=== PATIENT | male | born 1965 | race Caucasian/White ===

== ENCOUNTER 2019-07-30 18:25 | Inpatient (IN) ==
[2019-07-30] MEDS ORDERED: Acetaminophen 325 MG TABLET PO PRN (20:26)
[2019-07-30] MEDS ORDERED: Naloxone 0.4 MG/ML INJ IVP PRN (20:26)
[2019-07-30] MEDS ORDERED: Furosemide 80 MG in 0.9 % Sodium Chloride 50 ML IVPB ONE ×2 (21:09→21:27)
[2019-07-30] MEDS ORDERED: Furosemide 40 MG/4 ML VIAL IVP ONE (21:32)
[2019-07-30] MEDS: Azithromycin 500 MG in 0.9 % Sodium Chloride 250 ML IVPB SCH (21:46)
[2019-07-30 22:19] LABS: % Iron Saturation 14 % (20-55); Iron 25 mcg/dL (65-175); Transferrin 130 mg/dL (203-362)
[2019-07-30 22:38] LABS: Ferritin 1090 ng/mL (20-250)
[2019-07-30] MEDS: Ipratropium/Albuterol Neb 3 ML IH SCH (22:41)
[2019-07-31] MEDS: MethylPREDNISolone 40 MG/ML VIAL IVP SCH ×4 (00:12→19:55)
[2019-07-31] MEDS ORDERED: Nitroglycerin 1 INCH/GM PACKET TP ONE (00:44)
[2019-07-31 00:57] LABS: Hematocrit 25.2 % (37.5-50.1); Mean Corpuscular HGB Conc 31.7 g/dL (31.6-35.5); Mean Corpuscular Hemoglobin 29.7 pg (28.0-33.3); Mean Corpuscular Volume 93.7 fL (83.0-100.0); Mean Platelet Volume 8.6 fL (9.4-12.4); Platelet Count 196 K/mcL (140-400); Red Blood Count 2.69 M/mcL (4.19-5.50); Red Cell Distribution Width 16.2 % (11.5-14.5); White Blood Count 11.8 K/mcL (4.3-11.1)
[2019-07-31 01:17] LABS: Calcium 9.8 mg/dL (8.6-10.3); Magnesium 2.1 mg/dL (1.6-2.6); Phosphorous 2.2 mg/dL (2.7-4.5); Potassium 3.6 mEq/L (3.5-5.1)
[2019-07-31 01:23] LABS: Adenovirus Not Detected (Not Detect); Coronavirus 229E Not Detected (Not Detect); Coronavirus HKU1 Not Detected (Not Detect); Coronavirus NL63 Not Detected (Not Detect); Coronavirus OC43 Not Detected (Not Detect); Human Metapneumovirus Not Detected (Not Detect); Human Rhinovirus/Enterovirus Not Detected (Not Detect)
[2019-07-31 01:24] LABS: Bordetella Pertussis Not Detected (Not Detect); Chlamydophila pneumoniae Not Detected (Not Detect); Influenza A Subtype 2009 H1 Not Detected (Not Detect); Influenza B Not Detected (Not Detect); Mycoplasma pneumoniae Not Detected (Not Detect); Parainfluenza Virus 1 Not Detected (Not Detect); Parainfluenza Virus 2 Not Detected (Not Detect); Parainfluenza Virus 3 Not Detected (Not Detect); Parainfluenza Virus 4 Not Detected (Not Detect); Respiratory Syncytial Virus Not Detected (Not Detect)
[2019-07-31] MEDS: Ipratropium/Albuterol Neb 3 ML IH SCH ×4 (03:50→22:06)
[2019-07-31 09:58] LABS: Bilirubin,Urine Negative (Negative); Blood,Urine Negative (Negative); Clarity,Urine Clear (Clear); Color,Urine Yellow (Yellow); Glucose,Urine (UA) Normal (Normal); Ketones,Urine Trace mg/dL (Negative); Leukocyte Esterase,Urine Negative (Negative); Nitrite,Urine Negative (Negative); PH,Urine 7.5 pH Units (5.0-8.0); Protein,Urine 100 mg/dL (Neg-Trace); Specific Gravity,Urine 1.015 (1.010-1.025); Urobilinogen,Urine Normal (Normal)
[2019-07-31 10:02] LABS: Bacteria,Urine Moderate per hpf (None-Few); Hyaline Casts,Urine None Seen per lpf (None-Few); Squamous Epithelial Cell,Urine Many per lpf (None-Few)
[2019-07-31] MEDS ORDERED: clonazePAM 0.5 MG TABLET PO PRN (13:23)
[2019-07-31] MEDS: *HR* HYDROcodone/Acet 5/325 mg TABLET PO PRN (14:12)
[2019-07-31] MEDS: Famotidine 20 MG TABLET PO SCH (14:12)
[2019-07-31] MEDS: cloNIDine HCl 0.1 MG TABLET PO SCH ×2 (14:12→19:54)
[2019-07-31] MEDS: hydrALAZINE 25 MG TABLET PO SCH ×2 (14:12→19:54)
[2019-07-31] MEDS: *HR* Heparin 5,000 UNIT/ML VIAL SQ SCH ×2 (14:13→19:55)
[2019-07-31] MEDS: carvediloL 25 MG TABLET PO SCH (16:26)
[2019-07-31] MEDS: Azithromycin 500 MG in 0.9 % Sodium Chloride 250 ML IVPB SCH (23:47)
[2019-07-31] MEDS: *HR* Labetalol 20 MG/4 ML SYRINGE IVP PRN (23:49)
[2019-08-01 01:05] LABS: Hematocrit 23.2 % (37.5-50.1); Hemoglobin 7.4 g/dL (12.9-16.9); Mean Corpuscular HGB Conc 31.9 g/dL (31.6-35.5); Mean Corpuscular Volume 93.9 fL (83.0-100.0); Mean Platelet Volume 8.8 fL (9.4-12.4); Platelet Count 193 K/mcL (140-400); Red Blood Count 2.47 M/mcL (4.19-5.50)
[2019-08-01 01:21] LABS: Calcium 9.7 mg/dL (8.6-10.3); Potassium 4.1 mEq/L (3.5-5.1)
[2019-08-01 01:26] LABS: Albumin 3.6 g/dL (3.5-5.7); Phosphorous 2.6 mg/dL (2.7-4.5)
[2019-08-01] MEDS: Ipratropium/Albuterol Neb 3 ML IH SCH (03:46)
[2019-08-01] MEDS: *HR* Labetalol 20 MG/4 ML SYRINGE IVP PRN (06:22)
[2019-08-01] MEDS: *HR* Heparin 5,000 UNIT/ML VIAL SQ SCH (06:23)
[2019-08-01 07:36] VITALS: BP 169/91
[2019-08-01] MEDS: carvediloL 25 MG TABLET PO SCH (07:48)
[2019-08-01] MEDS: cloNIDine HCl 0.1 MG TABLET PO SCH (07:48)
[2019-08-01] MEDS: hydrALAZINE 25 MG TABLET PO SCH (07:48)
[2019-08-01] MEDS: Famotidine 20 MG TABLET PO SCH (07:48)
[2019-08-01] MEDS: MethylPREDNISolone 40 MG/ML VIAL IVP SCH (07:49)
[2019-08-01] MEDS ORDERED: Nicotine 14 MG PATCH.TD24 TD SCH (09:00)
[2019-08-01] MEDS ORDERED: NIFEdipine XL (24 HR) 30 MG TAB.ER.24 PO SCH (09:00)
[2019-08-01] MEDS: *HR* HYDROcodone/Acet 5/325 mg TABLET PO PRN (10:23)
== END 2019-08-01 10:46 | DRG 291 ==
LOC: 2ANU → 2NNU 23:26 → SUATTDRO 23:43
PROVIDERS: ADMIT Pharmacist; ATTEND Family Medicine

== ENCOUNTER 2019-08-20 04:47 | Observation (INO) ==
[2019-08-20] MEDS ORDERED: Naloxone 0.4 MG/ML INJ IVP PRN (08:52)
[2019-08-20] MEDS ORDERED: Ondansetron ODT 4 MG TAB.RAPDIS SL PRN (08:52)
[2019-08-20] MEDS ORDERED: Ipratropium/Albuterol Neb 3 ML IH PRN (08:55)
[2019-08-20] MEDS ORDERED: 0.9 % Sodium Chloride 250 ML IVC PRN (08:59)
[2019-08-20] MEDS ORDERED: 0.9 % Sodium Chloride 1,000 ML PRIME SCH ×2 (09:00→11:30)
[2019-08-20] MEDS ORDERED: 0.9 % Sodium Chloride 2,000 ML ONE (09:53)
[2019-08-20] MEDS ORDERED: Ipratropium/Albuterol Neb 3 ML IH SCH (10:00)
[2019-08-20 11:05] LABS: Hepatitis B Surface Antibody < 3.10 mIU/mL
[2019-08-20 11:16] LABS: Hepatitis B Surface Antigen Nonreactive (Nonreactive)
[2019-08-20] MEDS ORDERED: *HR* Heparin 10,000 UNIT/10 ML VIAL IV PRN (11:26)
[2019-08-20] MEDS ORDERED: cloNIDine HCL 0.1 MG TABLET PO ONE (12:05)
[2019-08-20] MEDS: Budesonide/Formoterol 160/4.5 1 PUFF INH IH SCH ×2 (14:10→20:03)
[2019-08-20 14:26] LABS: Adenovirus Not Detected (Not Detect); Bordetella Pertussis Not Detected (Not Detect); Coronavirus 229E Not Detected (Not Detect); Coronavirus HKU1 Not Detected (Not Detect); Coronavirus NL63 Not Detected (Not Detect); Coronavirus OC43 Not Detected (Not Detect); Human Metapneumovirus Not Detected (Not Detect); Human Rhinovirus/Enterovirus Not Detected (Not Detect); Influenza B Not Detected (Not Detect); Parainfluenza Virus 1 Not Detected (Not Detect); Parainfluenza Virus 2 Not Detected (Not Detect); Parainfluenza Virus 3 Not Detected (Not Detect); Parainfluenza Virus 4 Not Detected (Not Detect); Respiratory Syncytial Virus Not Detected (Not Detect)
[2019-08-20 14:27] LABS: Chlamydophila pneumoniae Not Detected (Not Detect); Influenza A Subtype 2009 H1 Not Detected (Not Detect); Mycoplasma pneumoniae Not Detected (Not Detect)
[2019-08-20] MEDS: hydrALAZINE 25 MG TABLET PO SCH ×2 (14:58→19:49)
[2019-08-20] MEDS: NIFEdipine XL (24 HR) 30 MG TAB.ER.24 PO SCH (14:59)
[2019-08-20] MEDS: Azithromycin 500 MG in 0.9 % Sodium Chloride 250 ML IVPB SCH (14:59)
[2019-08-20] MEDS: Glycopyrrolate 1 MG TABLET PO SCH ×2 (14:59→19:49)
[2019-08-20] MEDS: Albuterol 2.5 MG/3 ML NEBULIZER IH SCH ×3 (15:52→23:47)
[2019-08-20] MEDS ORDERED: E-Z-PAQUE (BARIUM SULF) SUSP 1 BOTTLE PO ONE (17:18)
[2019-08-20] MEDS ORDERED: E-Z-HD (BARIUM SULF) SUSPENSION PO ONE (17:18)
[2019-08-20] MEDS ORDERED: Acetaminophen 325 MG TABLET PO PRN (18:24)
[2019-08-20] MEDS: *HR* Heparin 5,000 UNIT/ML VIAL SQ SCH (18:57)
[2019-08-20] MEDS: MethylPREDNISolone 40 MG/ML VIAL IVP SCH (18:57)
[2019-08-20] MEDS: cloNIDine HCL 0.1 MG TABLET PO SCH (19:49)
[2019-08-20] MEDS: carvediloL 25 MG TABLET PO SCH (19:49)
[2019-08-21 01:06] LABS: Basophils % 0.2 %; Hematocrit 26.8 % (37.5-50.1); Hemoglobin 8.5 g/dL (12.9-16.9); Immature Granulocytes % 1.1 % (0-4); Lymphocytes # 0.4 K/mcL (0.6-4.6); Lymphocytes % 6.6 %; Mean Corpuscular HGB Conc 31.7 g/dL (31.6-35.5); Mean Corpuscular Hemoglobin 31.1 pg (28.0-33.3); Mean Corpuscular Volume 98.2 fL (83.0-100.0); Mean Platelet Volume 8.8 fL (9.4-12.4); Monocytes # 0.1 K/mcL (0.0-1.3); Monocytes % 1.6 %; Neutrophils # 5.6 K/mcL (1.6-8.9); Platelet Count 212 K/mcL (140-400); Red Blood Count 2.73 M/mcL (4.19-5.50); Red Cell Distribution Width 17.2 % (11.5-14.5); Segmented Neutrophils % 90.5 %; White Blood Count 6.2 K/mcL (4.3-11.1)
[2019-08-21 01:28] LABS: Calcium 9.5 mg/dL (8.6-10.3); Magnesium 2.1 mg/dL (1.6-2.6); Potassium 4.3 mEq/L (3.5-5.1)
[2019-08-21] MEDS: Albuterol 2.5 MG/3 ML NEBULIZER IH SCH ×4 (03:48→16:06)
[2019-08-21] MEDS: MethylPREDNISolone 40 MG/ML VIAL IVP SCH (05:07)
[2019-08-21] MEDS: *HR* Heparin 5,000 UNIT/ML VIAL SQ SCH (05:07)
[2019-08-21] MEDS: Glycopyrrolate 1 MG TABLET PO SCH (07:36)
[2019-08-21] MEDS: hydrALAZINE 25 MG TABLET PO SCH (07:36)
[2019-08-21] MEDS: cloNIDine HCL 0.1 MG TABLET PO SCH (07:36)
[2019-08-21] MEDS: carvediloL 25 MG TABLET PO SCH (07:36)
[2019-08-21] MEDS: NIFEdipine XL (24 HR) 30 MG TAB.ER.24 PO SCH (07:37)
[2019-08-21] MEDS: Budesonide/Formoterol 160/4.5 1 PUFF INH IH SCH (07:48)
[2019-08-21] MEDS ORDERED: clonazePAM 0.5 MG TABLET PO PRN (07:53)
[2019-08-21 11:56] VITALS: BP 95/53
[2019-08-21] MEDS: Azithromycin 500 MG in 0.9 % Sodium Chloride 250 ML IVPB SCH (11:59)
[2019-08-22] MEDS ORDERED: predniSONE 20 MG TABLET PO SCH (09:00)
== END 2019-08-21 13:30 ==
LOC: 2NNU → SUATTDRO 07:57
PROVIDERS: ADMIT Family Medicine; ATTEND Internal Medicine

== ENCOUNTER 2019-08-30 09:37 | Inpatient (IN) ==
[2019-08-30] MEDS ORDERED: Ondansetron ODT 4 MG TAB.RAPDIS SL PRN (12:26)
[2019-08-30] MEDS ORDERED: *HR* Heparin 10,000 UNIT/10 ML VIAL IV PRN (12:46)
[2019-08-30] MEDS ORDERED: 0.9 % Sodium Chloride 250 ML IVC PRN (12:46)
[2019-08-30] MEDS ORDERED: 0.9 % Sodium Chloride 1,000 ML PRIME SCH (13:00)
[2019-08-30] MEDS ORDERED: Cefepime HCl 1,000 MG in Water for inj. (sterile) 10 ML IVP SCH (15:01)
[2019-08-30] MEDS: Ipratropium/Albuterol Neb 3 ML IH SCH ×3 (19:26→22:05)
[2019-08-30] MEDS: Cefepime HCl 1,000 MG in Water for inj. (sterile) 10 ML IVP SCH (22:03)
[2019-08-30] MEDS: *HR* Heparin 5,000 UNIT/ML VIAL SQ SCH (22:18)
[2019-08-31] MEDS ORDERED: Dexmedetomidine HCl 400 MCG/100 ML MLS IVC SCH (00:15)
[2019-08-31] MEDS ORDERED: Dexmedetomidine HCl 400 MCG/100 ML MLS IVC ONE (00:19)
[2019-08-31] MEDS: Ipratropium/Albuterol Neb 3 ML IH SCH ×6 (03:14→23:40)
[2019-08-31 04:50] LABS: Basophils % 0.5 %; Hematocrit 24.8 % (37.5-50.1); Hemoglobin 7.7 g/dL (12.9-16.9); Immature Granulocytes % 0.4 % (0-4); Lymphocytes # 0.7 K/mcL (0.6-4.6); Lymphocytes % 12.7 %; Mean Corpuscular Hemoglobin 30.8 pg (28.0-33.3); Mean Corpuscular Volume 99.2 fL (83.0-100.0); Mean Platelet Volume 9.6 fL (9.4-12.4); Monocytes # 0.8 K/mcL (0.0-1.3); Monocytes % 14.8 %; Neutrophils # 4.1 K/mcL (1.6-8.9); Platelet Count 170 K/mcL (140-400); Red Cell Distribution Width 18.1 % (11.5-14.5); Segmented Neutrophils % 71.6 %; White Blood Count 5.7 K/mcL (4.3-11.1)
[2019-08-31] MEDS: *HR* Heparin 5,000 UNIT/ML VIAL SQ SCH ×3 (05:06→22:03)
[2019-08-31 05:11] LABS: Calcium 8.9 mg/dL (8.6-10.3)
[2019-08-31] MEDS ORDERED: clonazePAM 0.5 MG TABLET PO PRN (12:06)
[2019-08-31] MEDS: cloNIDine HCL 0.1 MG TABLET PO SCH ×2 (14:20→22:03)
[2019-08-31] MEDS: NIFEdipine XL (24 HR) 30 MG TAB.ER.24 PO SCH (14:20)
[2019-08-31] MEDS: Famotidine 20 MG TABLET PO SCH (14:20)
[2019-08-31] MEDS: polyethylene glycoL 3350 17 GM POWD.PACK PO SCH (14:22)
[2019-08-31] MEDS: Nicotine 14 MG PATCH.TD24 TD SCH (14:22)
[2019-08-31] MEDS: Budesonide/Formoterol 160/4.5 1 PUFF INH IH SCH ×2 (16:24→20:07)
[2019-08-31] MEDS: hydrALAZINE 25 MG TABLET PO SCH ×2 (17:46→21:58)
[2019-08-31] MEDS: Cefepime HCl 1,000 MG in Water for inj. (sterile) 10 ML IVP SCH (17:47)
[2019-08-31] MEDS: carvediloL 25 MG TABLET PO SCH (17:47)
[2019-08-31] MEDS: Sennosides/Docusate Sodium TABLET PO SCH (22:03)
[2019-09-01 03:51] LABS: Hemoglobin 7.7 g/dL (12.9-16.9); Mean Corpuscular HGB Conc 32.1 g/dL (31.6-35.5); Mean Corpuscular Volume 96.8 fL (83.0-100.0); Mean Platelet Volume 8.8 fL (9.4-12.4); Platelet Count 175 K/mcL (140-400); Red Blood Count 2.48 M/mcL (4.19-5.50); Red Cell Distribution Width 17.6 % (11.5-14.5); White Blood Count 5.5 K/mcL (4.3-11.1)
[2019-09-01 04:09] LABS: Calcium 8.8 mg/dL (8.6-10.3); Potassium 3.7 mEq/L (3.5-5.1)
[2019-09-01] MEDS: Ipratropium/Albuterol Neb 3 ML IH SCH ×5 (04:11→19:29)
[2019-09-01] MEDS: *HR* Heparin 5,000 UNIT/ML VIAL SQ SCH ×3 (05:31→23:16)
[2019-09-01] MEDS: Budesonide/Formoterol 160/4.5 1 PUFF INH IH SCH ×2 (07:38→19:30)
[2019-09-01] MEDS: NIFEdipine XL (24 HR) 30 MG TAB.ER.24 PO SCH (08:23)
[2019-09-01] MEDS: Sennosides/Docusate Sodium TABLET PO SCH ×2 (08:24→19:40)
[2019-09-01] MEDS: hydrALAZINE 25 MG TABLET PO SCH ×3 (08:24→19:40)
[2019-09-01] MEDS: Famotidine 20 MG TABLET PO SCH (08:25)
[2019-09-01] MEDS: Nicotine 14 MG PATCH.TD24 TD SCH (08:25)
[2019-09-01] MEDS: cloNIDine HCL 0.1 MG TABLET PO SCH ×2 (08:25→19:40)
[2019-09-01] MEDS: carvediloL 25 MG TABLET PO SCH ×2 (08:25→16:50)
[2019-09-01] MEDS: polyethylene glycoL 3350 17 GM POWD.PACK PO SCH (08:27)
[2019-09-01] MEDS ORDERED: *HR* Heparin 10,000 UNIT/10 ML VIAL IV PRN (08:49)
[2019-09-01] MEDS ORDERED: 0.9 % Sodium Chloride 250 ML IVC PRN (08:49)
[2019-09-01] MEDS: Cefepime HCl 1,000 MG in Water for inj. (sterile) 10 ML IVP SCH (16:51)
[2019-09-01] MEDS: *HR* HYDROcodone/Acet 5/325 mg TABLET PO PRN (20:02)
[2019-09-02 03:00] LABS: Calcium 8.5 mg/dL (8.6-10.3); Potassium 3.4 mEq/L (3.5-5.1)
[2019-09-02] MEDS: Ipratropium/Albuterol Neb 3 ML IH SCH ×7 (03:39→23:40)
[2019-09-02] MEDS: *HR* Heparin 5,000 UNIT/ML VIAL SQ SCH ×3 (05:34→20:29)
[2019-09-02] MEDS: Budesonide/Formoterol 160/4.5 1 PUFF INH IH SCH ×2 (07:31→20:30)
[2019-09-02] MEDS: NIFEdipine XL (24 HR) 30 MG TAB.ER.24 PO SCH (07:37)
[2019-09-02] MEDS: cloNIDine HCL 0.1 MG TABLET PO SCH ×2 (07:37→20:29)
[2019-09-02] MEDS: Famotidine 20 MG TABLET PO SCH (07:37)
[2019-09-02] MEDS: Nicotine 14 MG PATCH.TD24 TD SCH (07:38)
[2019-09-02] MEDS: carvediloL 25 MG TABLET PO SCH ×2 (07:38→18:14)
[2019-09-02] MEDS: Sennosides/Docusate Sodium TABLET PO SCH ×2 (07:38→20:29)
[2019-09-02] MEDS: hydrALAZINE 25 MG TABLET PO SCH ×3 (07:38→20:29)
[2019-09-02] MEDS: polyethylene glycoL 3350 17 GM POWD.PACK PO SCH (07:39)
[2019-09-02] MEDS ORDERED: Aminoglycoside Consult 1 EACH MC ONE (08:31)
[2019-09-02] MEDS: Aspirin Enteric Coated 81 MG Tablet PO SCH (10:27)
[2019-09-02] MEDS: Doxycycline 100 MG in 0.9 % Sodium Chloride Mini Bag 100 ML IVPB SCH (18:14)
[2019-09-02 19:07] LABS: ABG Base Excess 4 mEq/L (-2 to 3); ABG HCO3 28 mEq/L (21-27); ABG Oxygen Saturation 89 % (95-98); ABG PCO2 40 mmHg (35-45); ABG PH 7.46 pH Units (7.32-7.45); ABG PO2 54 mmHg (85-104); ABG TCO2 29 mEq/L (20-26)
[2019-09-03] MEDS: Ipratropium/Albuterol Neb 3 ML IH SCH ×6 (04:07→23:52)
[2019-09-03] MEDS: Doxycycline 100 MG in 0.9 % Sodium Chloride Mini Bag 100 ML IVPB SCH (05:06)
[2019-09-03] MEDS: *HR* Heparin 5,000 UNIT/ML VIAL SQ SCH ×3 (05:07→21:04)
[2019-09-03 05:28] LABS: Calcium 8.8 mg/dL (8.6-10.3); Potassium 3.8 mEq/L (3.5-5.1)
[2019-09-03] MEDS: Budesonide/Formoterol 160/4.5 1 PUFF INH IH SCH ×2 (07:32→20:31)
[2019-09-03] MEDS ORDERED: 0.9 % Sodium Chloride 250 ML IVC PRN (07:42)
[2019-09-03] MEDS ORDERED: *HR* Heparin 10,000 UNIT/10 ML VIAL IV PRN (07:42)
[2019-09-03] MEDS: Famotidine 20 MG TABLET PO SCH (08:06)
[2019-09-03] MEDS: Sennosides/Docusate Sodium TABLET PO SCH ×2 (08:06→21:02)
[2019-09-03] MEDS: Aspirin Enteric Coated 81 MG Tablet PO SCH (08:06)
[2019-09-03] MEDS: Nicotine 14 MG PATCH.TD24 TD SCH (08:06)
[2019-09-03] MEDS: hydrALAZINE 25 MG TABLET PO SCH ×4 (08:07→21:02)
[2019-09-03] MEDS: polyethylene glycoL 3350 17 GM POWD.PACK PO SCH (08:07)
[2019-09-03] MEDS ORDERED: Isovue-370 500 ML BOTTLE IVP ONE (09:08)
[2019-09-03] MEDS: cloNIDine HCL 0.1 MG TABLET PO SCH ×2 (10:50→21:02)
[2019-09-03] MEDS: carvediloL 25 MG TABLET PO SCH ×2 (10:50→16:14)
[2019-09-03] MEDS: NIFEdipine XL (24 HR) 30 MG TAB.ER.24 PO SCH (10:50)
[2019-09-03] MEDS: Piperacillin/Tazobactam 3.375 GM in 0.9 % Sodium Chloride Mini Bag 100 ML IVPB SCH (12:30)
[2019-09-03 15:24] LABS: Basophils # 0.1 K/mcL (0.0-0.2); Basophils % 0.7 %; Eosinophils # 0.1 K/mcL (0.0-0.6); Eosinophils % 0.6 %; Hematocrit 28.2 % (37.5-50.1); Hemoglobin 8.9 g/dL (12.9-16.9); Immature Granulocytes % 0.9 % (0-4); Lymphocytes % 10.8 %; Mean Corpuscular HGB Conc 31.6 g/dL (31.6-35.5); Mean Corpuscular Volume 94.9 fL (83.0-100.0); Mean Platelet Volume 9.1 fL (9.4-12.4); Monocytes # 0.7 K/mcL (0.0-1.3); Monocytes % 7.5 %; Platelet Count 263 K/mcL (140-400); Red Blood Count 2.97 M/mcL (4.19-5.50); Red Cell Distribution Width 17.3 % (11.5-14.5); Segmented Neutrophils % 79.5 %
[2019-09-03 15:25] LABS: White Blood Count 8.8 K/mcL (4.3-11.1)
[2019-09-03] MEDS: Acetylcysteine 10% 2 ML INHSOL IH SCH ×3 (15:49→23:52)
[2019-09-04] MEDS: Piperacillin/Tazobactam 3.375 GM in 0.9 % Sodium Chloride Mini Bag 100 ML IVPB SCH ×3 (00:45→23:47)
[2019-09-04] MEDS: Ipratropium/Albuterol Neb 3 ML IH SCH ×6 (03:17→23:09)
[2019-09-04] MEDS: Acetylcysteine 10% 2 ML INHSOL IH SCH ×6 (03:18→23:09)
[2019-09-04 03:23] LABS: Calcium 8.7 mg/dL (8.6-10.3); Potassium 3.6 mEq/L (3.5-5.1)
[2019-09-04] MEDS: *HR* Heparin 5,000 UNIT/ML VIAL SQ SCH ×4 (05:57→20:04)
[2019-09-04] MEDS: Budesonide/Formoterol 160/4.5 1 PUFF INH IH SCH ×2 (08:08→19:50)
[2019-09-04] MEDS: Nicotine 14 MG PATCH.TD24 TD SCH (09:14)
[2019-09-04] MEDS: hydrALAZINE 25 MG TABLET PO SCH ×3 (09:14→19:56)
[2019-09-04] MEDS: polyethylene glycoL 3350 17 GM POWD.PACK PO SCH (09:14)
[2019-09-04] MEDS: Famotidine 20 MG TABLET PO SCH (09:14)
[2019-09-04] MEDS: carvediloL 25 MG TABLET PO SCH ×2 (09:14→16:11)
[2019-09-04] MEDS: NIFEdipine XL (24 HR) 30 MG TAB.ER.24 PO SCH (09:14)
[2019-09-04] MEDS: Sennosides/Docusate Sodium TABLET PO SCH ×2 (09:14→19:57)
[2019-09-04] MEDS: cloNIDine HCL 0.1 MG TABLET PO SCH ×2 (09:14→19:56)
[2019-09-04] MEDS: Aspirin Enteric Coated 81 MG Tablet PO SCH (09:14)
[2019-09-04 13:04] LABS: Adenovirus Not Detected (Not Detect); Bordetella Pertussis Not Detected (Not Detect); Chlamydophila pneumoniae Not Detected (Not Detect); Coronavirus 229E Not Detected (Not Detect); Coronavirus HKU1 Not Detected (Not Detect); Coronavirus NL63 Not Detected (Not Detect); Coronavirus OC43 Not Detected (Not Detect); Human Metapneumovirus Not Detected (Not Detect); Human Rhinovirus/Enterovirus Not Detected (Not Detect); Influenza A Subtype 2009 H1 Not Detected (Not Detect); Influenza B Not Detected (Not Detect); Mycoplasma pneumoniae Not Detected (Not Detect); Parainfluenza Virus 1 Not Detected (Not Detect); Parainfluenza Virus 2 Not Detected (Not Detect); Parainfluenza Virus 3 Not Detected (Not Detect); Parainfluenza Virus 4 Not Detected (Not Detect); Respiratory Syncytial Virus Not Detected (Not Detect)
[2019-09-04] MEDS: *HR* HYDROcodone/Acet 5/325 mg TABLET PO PRN ×2 (14:44→21:24)
[2019-09-04] MEDS ORDERED: Vancomycin 500 MG in 0.9 % Sodium Chloride Mini Bag 100 ML IVPB ONE (16:00)
[2019-09-05] MEDS: Ipratropium/Albuterol Neb 3 ML IH SCH ×5 (04:01→20:02)
[2019-09-05] MEDS: Acetylcysteine 10% 2 ML INHSOL IH SCH ×5 (04:01→20:02)
[2019-09-05 04:34] LABS: INR 1.3; Prothrombin Time 14.4 Seconds (9.4-12.1)
[2019-09-05 04:35] LABS: Basophils # 0.1 K/mcL (0.0-0.2); Basophils % 0.8 %; Eosinophils # 0.3 K/mcL (0.0-0.6); Eosinophils % 3.4 %; Hematocrit 26.5 % (37.5-50.1); Hemoglobin 8.2 g/dL (12.9-16.9); Immature Granulocytes % 1.3 % (0-4); Lymphocytes # 1.2 K/mcL (0.6-4.6); Lymphocytes % 13.2 %; Mean Corpuscular HGB Conc 30.9 g/dL (31.6-35.5); Mean Corpuscular Hemoglobin 29.8 pg (28.0-33.3); Mean Corpuscular Volume 96.4 fL (83.0-100.0); Mean Platelet Volume 9.6 fL (9.4-12.4); Monocytes # 0.7 K/mcL (0.0-1.3); Monocytes % 7.7 %; Neutrophils # 6.8 K/mcL (1.6-8.9); Platelet Count 303 K/mcL (140-400); Red Blood Count 2.75 M/mcL (4.19-5.50); Red Cell Distribution Width 17.8 % (11.5-14.5); Segmented Neutrophils % 73.6 %; White Blood Count 9.2 K/mcL (4.3-11.1)
[2019-09-05 04:42] LABS: Potassium 3.4 mEq/L (3.5-5.1)
[2019-09-05] MEDS: *HR* Heparin 5,000 UNIT/ML VIAL SQ SCH ×4 (06:03→20:41)
[2019-09-05] MEDS: Budesonide/Formoterol 160/4.5 1 PUFF INH IH SCH ×2 (07:37→20:02)
[2019-09-05] MEDS: hydrALAZINE 25 MG TABLET PO SCH (07:53)
[2019-09-05] MEDS: NIFEdipine XL (24 HR) 30 MG TAB.ER.24 PO SCH (07:53)
[2019-09-05] MEDS: carvediloL 25 MG TABLET PO SCH (07:54)
[2019-09-05] MEDS: Nicotine 14 MG PATCH.TD24 TD SCH (07:54)
[2019-09-05] MEDS: polyethylene glycoL 3350 17 GM POWD.PACK PO SCH (07:54)
[2019-09-05] MEDS: Aspirin Enteric Coated 81 MG Tablet PO SCH (07:54)
[2019-09-05] MEDS: cloNIDine HCL 0.1 MG TABLET PO SCH (07:54)
[2019-09-05] MEDS: Sennosides/Docusate Sodium TABLET PO SCH ×2 (07:54→20:41)
[2019-09-05] MEDS: Famotidine 20 MG TABLET PO SCH (07:54)
[2019-09-05] MEDS ORDERED: Lidocaine -MPF 2% 2 ML VIAL ONE (09:28)
[2019-09-05] MEDS ORDERED: *HR* Propofol 200 MG/20 ML VIAL IVP ONE (09:28)
[2019-09-05] MEDS ORDERED: *HR* Succinylcholine 200 MG/10 ML VIAL IVP ONE (09:28)
[2019-09-05] MEDS ORDERED: Dexamethasone 4 MG/ML VIAL ONE (09:54)
[2019-09-05] MEDS ORDERED: Ondansetron 4 MG/2 ML VIAL ONE (09:54)
[2019-09-05] MEDS: Piperacillin/Tazobactam 3.375 GM in 0.9 % Sodium Chloride Mini Bag 100 ML IVPB SCH (11:21)
[2019-09-05] MEDS ORDERED: *HR* LORazepam 2 MG/ML VIAL IVP ONE (12:25)
[2019-09-05] MEDS: Pantoprazole 40 MG VIAL IVP SCH (13:50)
[2019-09-05 15:09] LABS: Appearance of Body Fluid Cloudy (Clear); Volume of Body Fluid 13 mL
[2019-09-05 16:22] LABS: Appearance of Body Fluid Clear (Clear); Volume of Body Fluid 10 mL
[2019-09-05] MEDS: *HR* HYDROcodone/Acet 5/325 mg TABLET PO PRN ×2 (16:48→20:50)
[2019-09-05] MEDS: *HR* Metoprolol 5 MG/5 ML VIAL IVP SCH (16:48)
[2019-09-06] MEDS: Piperacillin/Tazobactam 3.375 GM in 0.9 % Sodium Chloride Mini Bag 100 ML IVPB SCH ×2 (00:10→13:20)
[2019-09-06] MEDS: *HR* Metoprolol 5 MG/5 ML VIAL IVP SCH (00:10)
[2019-09-06 03:06] LABS: Calcium 8.8 mg/dL (8.6-10.3); Potassium 3.8 mEq/L (3.5-5.1)
[2019-09-06] MEDS: Ipratropium/Albuterol Neb 3 ML IH SCH ×7 (03:40→23:47)
[2019-09-06] MEDS: Acetylcysteine 10% 2 ML INHSOL IH SCH ×7 (03:41→23:48)
[2019-09-06] MEDS: *HR* Heparin 5,000 UNIT/ML VIAL SQ SCH ×3 (05:25→21:29)
[2019-09-06] MEDS: Budesonide/Formoterol 160/4.5 1 PUFF INH IH SCH ×2 (07:23→19:54)
[2019-09-06] MEDS ORDERED: *HR* Heparin 10,000 UNIT/10 ML VIAL IV PRN ×2 (07:41)
[2019-09-06] MEDS ORDERED: 0.9 % Sodium Chloride 250 ML IVC PRN (07:41)
[2019-09-06] MEDS: Nicotine 14 MG PATCH.TD24 TD SCH (09:19)
[2019-09-06] MEDS: Pantoprazole 40 MG VIAL IVP SCH (09:20)
[2019-09-06] MEDS: Famotidine 20 MG TABLET PO SCH (09:20)
[2019-09-06] MEDS: Aspirin Enteric Coated 81 MG Tablet PO SCH (09:20)
[2019-09-06] MEDS: *HR* HYDROcodone/Acet 5/325 mg TABLET PO PRN ×3 (09:21→21:31)
[2019-09-06] MEDS: polyethylene glycoL 3350 17 GM POWD.PACK PO SCH (09:29)
[2019-09-06] MEDS: Sennosides/Docusate Sodium TABLET PO SCH ×2 (09:29→21:25)
[2019-09-06] MEDS: NIFEdipine XL (24 HR) 30 MG TAB.ER.24 PO SCH (13:20)
[2019-09-06] MEDS: cloNIDine HCL 0.1 MG TABLET PO SCH ×2 (13:20→21:24)
[2019-09-07] MEDS: Piperacillin/Tazobactam 3.375 GM in 0.9 % Sodium Chloride Mini Bag 100 ML IVPB SCH (00:12)
[2019-09-07] MEDS: Acetylcysteine 10% 2 ML INHSOL IH SCH ×4 (03:29→15:23)
[2019-09-07] MEDS: Ipratropium/Albuterol Neb 3 ML IH SCH ×4 (03:29→15:23)
[2019-09-07 04:58] LABS: Potassium 3.6 mEq/L (3.5-5.1)
[2019-09-07] MEDS: *HR* Heparin 5,000 UNIT/ML VIAL SQ SCH (05:30)
[2019-09-07] MEDS: Budesonide/Formoterol 160/4.5 1 PUFF INH IH SCH (07:37)
[2019-09-07] MEDS: Famotidine 20 MG TABLET PO SCH (08:14)
[2019-09-07] MEDS: NIFEdipine XL (24 HR) 30 MG TAB.ER.24 PO SCH (08:14)
[2019-09-07] MEDS: *HR* HYDROcodone/Acet 5/325 mg TABLET PO PRN (08:15)
[2019-09-07] MEDS: Aspirin Enteric Coated 81 MG Tablet PO SCH (08:15)
[2019-09-07] MEDS: cloNIDine HCL 0.1 MG TABLET PO SCH (08:15)
[2019-09-07] MEDS: Nicotine 14 MG PATCH.TD24 TD SCH (08:15)
[2019-09-07] MEDS: Sennosides/Docusate Sodium TABLET PO SCH (08:16)
[2019-09-07] MEDS: polyethylene glycoL 3350 17 GM POWD.PACK PO SCH (08:17)
[2019-09-07] MEDS: Pantoprazole 40 MG VIAL IVP SCH (08:17)
[2019-09-07] MEDS ORDERED: levoFLOXacin 750 MG TABLET PO SCH (10:30)
[2019-09-07] MEDS ORDERED: levoFLOXacin 750 MG TABLET PO ONE (10:45)
[2019-09-07 11:12] VITALS: BP 110/78
[2019-09-07] MEDS ORDERED: Aminoglycoside Consult 1 EACH MC ONE (15:44)
[2019-09-08] MEDS ORDERED: levoFLOXacin 500 MG TABLET PO SCH (09:00)
== END 2019-09-07 15:45 | DRG 137 ==
LOC: 2NNU 11:16 → SUATTDRO 15:04 → 2ANU 09-02 11:16 → 2NNU 09-05 16:09
PROVIDERS: ADMIT Family Medicine; ATTEND Internal Medicine

== ENCOUNTER 2019-10-26 22:13 | Inpatient (IN) ==
[2019-10-26] MEDS ORDERED: 0.9 % Sodium Chloride 1,000 ML IVC ONE (22:26)
[2019-10-26] MEDS ORDERED: Ondansetron 4 MG/2 ML VIAL IVP ONE (22:26)
[2019-10-26 23:11] LABS: Basophils # 0.1 K/mcL (0.0-0.2); Basophils % 0.3 %; Eosinophils # 0.1 K/mcL (0.0-0.6); Eosinophils % 0.2 %; Hematocrit 34.4 % (37.5-50.1); Hemoglobin 10.9 g/dL (12.9-16.9); Immature Granulocytes % 0.8 % (0-4); Lymphocytes # 0.2 K/mcL (0.6-4.6); Lymphocytes % 0.7 %; Mean Corpuscular HGB Conc 31.7 g/dL (31.6-35.5); Mean Corpuscular Hemoglobin 31.6 pg (28.0-33.3); Mean Corpuscular Volume 99.7 fL (83.0-100.0); Mean Platelet Volume 9.4 fL (9.4-12.4); Monocytes # 1.3 K/mcL (0.0-1.3); Monocytes % 5.6 %; Platelet Count 215 K/mcL (140-400); Red Blood Count 3.45 M/mcL (4.19-5.50); Segmented Neutrophils % 92.4 %; White Blood Count 23.8 K/mcL (4.3-11.1)
[2019-10-26 23:18] LABS: INR 1.2; Prothrombin Time 13.7 Seconds (9.4-12.1)
[2019-10-26 23:20] LABS: Activated Partial Thrombo Time 38.7 Seconds (26.0-36.0)
[2019-10-26 23:30] LABS: Albumin 3.7 g/dL (3.5-5.7); Bilirubin,Indirect 0.5 mg/dL (0.0-1.0); Bilirubin,Total 0.5 mg/dL (0.3-1.0); Calcium 8.6 mg/dL (8.6-10.3); Globulin 3.7 g/dL (2.4-3.5); Magnesium 1.6 mg/dL (1.6-2.6); Phosphorous 6.8 mg/dL (2.7-4.5); Potassium 4.7 mEq/L (3.5-5.1); Total Protein 7.4 g/dL (6.4-8.9)
[2019-10-26 23:40] LABS: Troponin I 0.05 ng/mL (< 0.04)
[2019-10-26 23:45] LABS: Platelet Estimate Normal (Normal)
[2019-10-27 00:30] LABS: Bilirubin,Urine Small (Negative); Blood,Urine Negative (Negative); Clarity,Urine Cloudy (Clear); Color,Urine Yellow (Yellow); Glucose,Urine (UA) Normal (Normal); Ketones,Urine Negative (Negative); Leukocyte Esterase,Urine Negative (Negative); Nitrite,Urine Negative (Negative); Protein,Urine 30 mg/dL (Neg-Trace); Specific Gravity,Urine 1.021 (1.010-1.025); Urobilinogen,Urine Normal (Normal)
[2019-10-27 00:32] LABS: Bacteria,Urine None Seen per hpf (None-Few); Squamous Epithelial Cell,Urine Many per lpf (None-Few)
[2019-10-27] MEDS ORDERED: Aminoglycoside Consult 1 EACH MC ONE (00:37)
[2019-10-27 00:46] LABS: Hyaline Casts,Urine Few per lpf (None-Few)
[2019-10-27] MEDS ORDERED: cefTRIAXone 1,000 MG in Water for inj. (sterile) 10 ML IVP ONE (02:05)
[2019-10-27] MEDS ORDERED: Azithromycin 500 MG in 0.9 % Sodium Chloride 250 ML IVPB ONE (02:05)
[2019-10-27] MEDS ORDERED: Cefepime HCl 2,000 MG in 0.9 % Sodium Chloride Mini Bag 100 ML IVPB STA (02:16)
[2019-10-27] MEDS ORDERED: Naloxone 0.4 MG/ML INJ IVP PRN (03:35)
[2019-10-27] MEDS ORDERED: 0.9 % Sodium Chloride 1,000 ML IVC SCH (04:15)
[2019-10-27] MEDS ORDERED: Isovue-370 500 ML BOTTLE IVP ONE (04:30)
[2019-10-27] MEDS ORDERED: Ipratropium/Albuterol Neb 3 ML IH PRN (05:03)
[2019-10-27] MEDS ORDERED: clonazePAM 0.5 MG TABLET PO PRN (05:03)
[2019-10-27 05:45] LABS: Albumin 3.3 g/dL (3.5-5.7); Albumin/Globulin Ratio 0.9 (1.1-2.2); Bilirubin,Total 0.4 mg/dL (0.3-1.0); Calcium 8.2 mg/dL (8.6-10.3); Globulin 3.5 g/dL (2.4-3.5); Magnesium 1.6 mg/dL (1.6-2.6); Phosphorous 5.8 mg/dL (2.7-4.5); Potassium 4.9 mEq/L (3.5-5.1); Total Protein 6.8 g/dL (6.4-8.9)
[2019-10-27 05:48] LABS: Troponin I 0.04 ng/mL (< 0.04)
[2019-10-27] MEDS: Budesonide/Formoterol 160/4.5 1 PUFF INH IH SCH ×2 (07:36→20:08)
[2019-10-27] MEDS: hydrALAZINE 25 MG TABLET PO SCH ×3 (08:00→18:04)
[2019-10-27] MEDS: carvediloL 25 MG TABLET PO SCH ×2 (08:00→18:05)
[2019-10-27] MEDS ORDERED: Cefepime HCl 2,000 MG in Water for inj. (sterile) 20 ML IVP SCH ×2 (08:00→18:00)
[2019-10-27] MEDS: Docusate Oral Soln 100 MG/10 ML UDC PO SCH ×2 (08:00→21:45)
[2019-10-27] MEDS ORDERED: Azithromycin 500 MG in 0.9 % Sodium Chloride 250 ML IVPB SCH (09:00)
[2019-10-27] MEDS ORDERED: Cefepime HCl 500 MG in Water for inj. (sterile) 10 ML IVP SCH (09:00)
[2019-10-27] MEDS ORDERED: Nicotine 14 MG PATCH.TD24 TD SCH (09:00)
[2019-10-27] MEDS ORDERED: Famotidine 20 MG TABLET PO SCH (09:00)
[2019-10-27] MEDS: Sennosides 8.6 MG TABLET PO SCH ×2 (09:00→21:45)
[2019-10-27] MEDS ORDERED: NIFEdipine XL (24 HR) 30 MG TAB.ER.24 PO SCH (09:00)
[2019-10-27] MEDS: Glycopyrrolate 1 MG TABLET PO SCH ×2 (09:00→18:05)
[2019-10-27] MEDS ORDERED: Dextrose Gel 15 GM/37.5 ML TUBE PO PRN ×2 (13:43)
[2019-10-27] MEDS ORDERED: *HR* Dextrose 50 % in Water (Syg) 50 ML SYRINGE IVP PRN (13:43)
[2019-10-27] MEDS ORDERED: D5% in Water 1,000 ML IVC PRN (13:43)
[2019-10-27] MEDS ORDERED: Piperacillin/Tazobactam 3.375 GM in 0.9 % Sodium Chloride Mini Bag 100 ML IVPB SCH (16:00)
[2019-10-27] MEDS ORDERED: *HR* Heparin 5,000 UNIT/ML VIAL SQ SCH (18:00)
[2019-10-27] MEDS ORDERED: Insulin LISPRO 300 UNITS/3 ML VIAL SQ SCH (18:00)
[2019-10-27] MEDS: *HR* HYDROcodone/Acet 5/325 mg TABLET PO PRN (18:04)
[2019-10-28] MEDS: *HR* HYDROcodone/Acet 5/325 mg TABLET PO PRN (00:06)
[2019-10-28 00:13] VITALS: BP 185/87
[2019-10-28] MEDS ORDERED: Azithromycin 500 MG in 0.9 % Sodium Chloride 250 ML IVPB SCH (02:00)
== END 2019-10-28 00:38 | disposition other institution (70) | DRG 720 ==
LOC: EMEROOARM 22:13 → 2NENU 22:13 → 2ANU 10-27 20:47
PROVIDERS: ADMIT Internal Medicine; ATTEND Internal Medicine